=== PATIENT | male | born 1940 | race Two or more races ===

== ENCOUNTER 2021-02-15 07:32 | Outpatient (CLI) | payer OTHER | END 2021-02-15 07:36 | disposition home or self-care (01) | LOC: NUCLEAR 07:32 | PROVIDERS: ATTEND Surgery | DX: I72.1 Aneurysm of artery of upper extremity (principal) ==

== ENCOUNTER 2023-04-13 07:37 | Outpatient (CLI) | payer OTHER | END 2023-04-13 07:52 | disposition home or self-care (01) | LOC: MRI 07:37 | DX: M50.10 Cervical disc disorder with radiculopathy, unspecified cervical region (principal); M54.16 Radiculopathy, lumbar region; M54.10 Radiculopathy, site unspecified | CPT/HCPCS: 72148; 72156 ==

== ENCOUNTER 2024-10-01 15:32 | Emergency (ER) | payer OTHER ==
[~2024-10-01] VITALS: Ht 162.6 cm; Wt 70.3 kg
[~2024-10-01 15:32] MED LIST: ASA81 MG; LIPITOR20 MG; PLAVIX75 MG
[2024-10-01] MEDS ORDERED: FUROsemide 40 MG/4 ML VIAL IV ONE (16:45)
[2024-10-01] MEDS ORDERED: LEVALBUTEROL HCL 1.25 MG/3 ML SOLUTION IH SCH (17:15)
[2024-10-01 17:44] LABS: ABG PH 7.424 (7.35-7.45); ABG pCO2 45.8 mmHg (35-45); BASE EXCESS 4.1 mmol/l; BICARBONATE 29.3 mmol/l (23-25); SaO2 95.5 %; Tco2 30.7 mmol/l; allen test SATISFACTORY; puncture site RADIAL LEFT
[2024-10-01 17:45] LABS: o2 21 %
[2024-10-01 18:03] LABS: HEMATOCRIT 39.3 % (39.0-48.0); HEMOGLOBIN 12.9 g/dL (13-16.00); MEAN CELL VOLUME 87.7 fL (80.0-100.00); MEAN CORPUSCULAR HEMOGLOBIN 28.7 pg (27.00-32.0); MEAN CORPUSCULAR HGB CONC 32.8 g/dl (32.0-36.0); PLATELET COUNT 353 K/uL (150-450); RED BLOOD COUNT 4.48 M/uL (4.00-6.00); RED CELL DISTRIBUTION WIDTH 15.2 % (11.5-14.5)
[2024-10-01 18:28] LABS: ALBUMIN 3.8 gm/dL (3.4-5.0); BILIRUBIN TOTAL 0.78 mg/dL (0.3-1.2); BILIRUBIN,CONJUGATED 0.16 mg/dL (0.0-0.2); BILIRUBIN,UNCONJUGATED 0.62 mg/dL (0.0-0.6); CALCIUM 11.5 mg/dL (8.5-10.1); CREATININE SERUM 1.21 mg/dL (0.70-1.30); GFR 56.99; GLOBULINA 3.4 G/DL (2.4-3.5); POTASSIUM 4.49 mEq/L (3.5-5.1); TOTAL PROTEIN 7.2 gm/dL (6.4-8.2)
== END 2024-10-01 19:49 | disposition home or self-care (01) ==
LOC: ER 15:32
PROVIDERS: General Practice
DX: R06.02 Shortness of breath (principal); R60.9 Edema, unspecified; I11.9 Hypertensive heart disease without heart failure